=== PATIENT | male | born 2000 | race Hispanic/Latino ===

== ENCOUNTER 2018-12-30 12:32 | Emergency (ER) | payer SELFPAY ==
[2018-12-30] MEDS ORDERED: hydrOXYzine 25 MG TAB ONE (12:47)
[2018-12-30] MEDS ORDERED: Diazepam 5 MG TAB ONE (14:08)
== END 2018-12-30 14:28 | disposition home or self-care (01) ==
LOC: ERS 12:32
DX: M25.561 Pain in right knee (principal); F41.9 Anxiety disorder, unspecified; V43.62XA Car passenger injured in collision with other type car in traffic accident, initial encounter
CPT/HCPCS: 93005